=== PATIENT | male | born 1965 | race Two or more races ===

== ENCOUNTER 2021-04-28 11:30 | Outpatient (CLI) | payer OTHER | END 2021-04-28 12:30 | disposition home or self-care (01) | LOC: ASH CLINIC 11:30 | PROVIDERS: ATTEND General Practice | DX: U07.1 COVID-19 (principal); Z23 Encounter for immunization ==

== ENCOUNTER 2022-01-03 09:36 | Outpatient (CLI) | payer OTHER | END 2022-01-03 09:37 | disposition home or self-care (01) | LOC: RAD 09:36 | PROVIDERS: ATTEND General Practice | DX: R06.02 Shortness of breath (principal) ==

== ENCOUNTER 2024-03-17 12:44 | Outpatient (CLI) | payer OTHER | END 2024-03-17 12:51 | disposition home or self-care (01) | LOC: RAD 12:44 | PROVIDERS: ATTEND General Practice | DX: R06.02 Shortness of breath (principal); J40 Bronchitis, not specified as acute or chronic ==